=== PATIENT | male | born 1980 | race Caucasian/White ===

== ENCOUNTER 2018-12-31 20:31 | Emergency (ER) | payer OTHER ==
[2018-12-31] MEDS ORDERED: Rocephin 1000 MG INJ IM ONE (21:38)
--- NOTE | 2018-12-31 21:44 | ERPHSYRPT ---
- History of Present Illness Time Seen by Provider: 12/31/18 21:32 Source: patient Exam Limitations: no limitations Patient Subjective Stated Complaint: pt states, "I've had this rash since Jun at my beltline and went to the Dr. It got better with steroids and cream. They areas subsided and went away. They are now back and everywhere. Pt states , "[place]". Triage Nursing Assessment: pt has scabs to lt foot, lt lower ext, rt lower ext, back and redness to all these areas including bilat arms, with swelling noted to lt foot and neck area. Pt states, "They itch terribly". Lungs clear, heart tones reg. Physician History: 38-year-old white male arrives with complaint of a rash occurring on his right neck his left groin bilateral lower legs symptoms off and on since June. He states that this itches. He states that he has been seen by his family doctor placed on steroids and permethrin cream he states that this continues to come back. Past medical history is negative past surgical history is negative. . Timing/Duration: other (symptoms since June) Severity: moderate Modifying Factors: Improves With: other (has been on permethrin and steroids in the past) Associated Symptoms: rash, No nausea, No vomiting, No abdominal pain, No shortness of breath, No heartburn, No diaphoresis, No cough, No chills, No chest pain, No fever, No headaches, No loss of appetite, No malaise, No syncope , No seizure, No weakness Allergies/Adverse Reactions: No Known Drug Allergies Allergy (Unverified 12/31/18 20:47) Home Medications: Escitalopram Oxalate 10 mg [Lexapro 10 MG] 10 mg PO DAILY 12/31/18 [History] Hx Tetanus, Diphtheria Vaccination/Date Given: Yes Hx Influenza Vaccination/Date Given: Yes Hx Pneumococcal Vaccination/Date Given: No Immunizations Up to Date: Yes - Review of Systems Constitutional: No Fever, No Chills Eyes: No Symptoms Ears, Nose, & Throat: No Symptoms Respiratory: No Cough, No Dyspnea Cardiac: No Chest Pain, No Edema, No Syncope Abdominal/Gastrointestinal: No Abdominal Pain, No Nausea, No Vomiting, No Diarrhea Genitourinary Symptoms: No Dysuria Musculoskeletal: Other (eschar dorsal left foot approximately 1 cm x 4 erythema dorsal left fot) Skin: Rash (excoriated rash on right side of neck, bilateral feet, bilateral lower legs, left groin), Other (eschar 1 x 4 cm left dorsal foot with surrounding erythema) Neurological: No Dizziness, No Focal Weakness, No Sensory Changes Psychological: No Symptoms Endocrine: No Symptoms All Other Systems: Reviewed and Negative - Past Medical History Pertinent Past Medical History: No Neurological History: No Pertinent History ENT History: No Pertinent History Cardiac History: No Pertinent History Respiratory History: No Pertinent History Endocrine Medical History: No Pertinent History Musculoskeletal History: Fractures GI Medical History: No Pertinent History History: No Pertinent History Psycho-Social History: Depression Male Reproductive Disorders: No Pertinent History Other Medical History: HAND SURGERY D/T FX - Past Surgical History Past Surgical History: Yes Neuro Surgical History: No Pertinent History Cardiac: No Pertinent History Respiratory: No Pertinent History Gastrointestinal: No Pertinent History Genitourinary: No Pertinent History Musculoskeletal: Orthopedic Surgery Male Surgical History: No Pertinent History - Social History Smoking Status: Current every day smoker How long have you smoked: 16 yrs Exposure to second hand smoke: No Drug Use: none Patient Lives Alone: No - Nursing Vital Signs Nursing Vital Signs: Initial Vital Signs Temperature 99.0 F 12/31/18 20:31 Pulse Rate 85 12/31/18 20:31 Respiratory Rate 17 12/31/18 20:31 Blood Pressure 142/77 12/31/18 20:31 O2 Sat by Pulse Oximetry 97 12/31/18 20:31 Pain Scale Pain Intensity 2 - Physical Exam General Appearance: no apparent distress, alert Eye Exam: PERRL/EOMI, eyes nml inspection Ears, Nose, Throat Exam: normal ENT inspection, TMs normal, pharynx normal, moist mucous membranes Neck Exam: normal inspection, non-tender, supple, full range of motion Respiratory Exam: normal breath sounds, lungs clear, No respiratory distress Cardiovascular Exam: regular rate/rhythm, normal heart sounds, normal peripheral pulses, capillary refill <2 sec (Q.) Gastrointestinal/Abdomen Exam: soft, normal bowel sounds, No tenderness, No mass Back Exam: normal inspection, normal range of motion, No CVA tenderness, No vertebral tenderness Extremity Exam: other (1 x 4 cm eschar left dorsal foot erythema distal dorsal foot on the left) Neurologic Exam: alert, oriented x 3, cooperative, plane tender II-XII nml as tested, normal mood/affect, nml cerebellar function, nml station & gait, sensation nml, No motor deficits Skin Exam: other (diffuse but sparse erythematous rash bilateral lower legs right side of neck left groin resembles scabies) Lymphatic Exam: No adenopathy SpO2 Interpretation: normal (97%) SpO2: 97 - Course Nursing assessment & vital signs reviewed: Yes Ordered Tests: Medication Summary Discontinued Medications Generic Name Dose Route Start Last Admin Trade Name Vinnie PRN Reason Stop Dose Admin Ceftriaxone Sodium 1,000 mg 12/31/18 21:38 Rocephin 1000 Mg Inj IM 12/31/18 21:39 STAT ONE Permethrin 60 gm 12/31/18 21:45 Elimite Cream TP 12/31/18 21:46 STAT ONE Permethrin 60 gm 12/31/18 21:45 Elimite Cream TP 12/31/18 21:46 STAT ONE Trimethoprim/Sulfamethoxazole 1 tab 12/31/18 21:46 Bactrim Ds Tablet PO 12/31/18 21:47 STAT STA - Progress Progress: improved Progress Note: 12/31/18 21:43 38-year-old white male arrives with recurrent rash since June. He has a diffuse excoriated rash on the right side of his neck his left groin also bilateral lower legs appears to be scabies. He also has an excoriated area which is now covered with eschar on his left dorsal foot 1 x 4 cm with surrounding erythema. Will go ahead and give patient Rocephin 1 g IM placed on Bactrim DS one orally twice a day for 10 days, place patient on permethrin cream. Patient will need to follow back up with his family - Departure Departure Disposition: Home Clinical Impression: Scabies, Cellulitis of left foot Condition: Fair Critical Care Time: No Referrals: KRISTIN RODRIGUEZ II [Primary Care Provider] - Additional Instructions: Permethrin cream, apply from neck down wash off after 8 hours. Bactrim DS one orally twice a day for 10 days. Followup with your family . Return for acute distress or for severe symptoms. Prescriptions: Smz/Tmp Ds Tablet [Bactrim Ds Tablet] 1 tab PO BID #20 tablet
[2018-12-31] MEDS ORDERED: Elimite CREAM TP ONE ×2 (21:45)
[2018-12-31] MEDS ORDERED: BACTRIM DS TABLET PO STA (21:46)
[2018-12-31] MEDS ORDERED: Rocephin 1000 MG INJ ONE (21:47)
[2018-12-31] MEDS ORDERED: XYLOCAINE 1% HCL 20 ML MDV ONE (21:47)
[2018-12-31] MEDS ORDERED: BACTRIM DS TABLET PO ONE (21:52)
[2018-12-31 22:15] VITALS: BP 126/66; PULSE 88; O2SAT 98
== END 2018-12-31 22:16 | disposition home or self-care (01) ==
LOC: ED 20:31
DX: B86 Scabies (principal); L03.116 Cellulitis of left lower limb
CPT/HCPCS: 96372; 99283; J0696; A9270-GY

== ENCOUNTER 2019-02-10 19:36 | Emergency (ER) | payer OTHER ==
[2019-02-10 20:27] VITALS: O2SAT 97
[2019-02-10] MEDS ORDERED: BACIGUENT PACKET TP ONE (20:59)
--- NOTE | 2019-02-10 21:00 | ERPHSYRPT ---
- History of Present Illness Time Seen by Provider: 02/10/19 20:45 Source: patient Exam Limitations: no limitations Patient Subjective Stated Complaint: pt playing baseball when slid in to second , cleat caught on ground and body continued forward. pt states he had immediate swelling in outter aspect of rt ankle Triage Nursing Assessment: swelling in rt ankle. limeted rom rt ankle, and pt non weight bearing. no other sx noted or reported Physician History: Right ankle pain and swelling after sliding into a base at 17:00 on 02/10/2019. Patient also has left knee pain after sliding into a base with a large abrasion to the left knee. Method of Injury: sports injury Occurred: hours ago (3) Quality: constant Severity of Pain-Max: moderate Severity of Pain-Current: moderate Lower Extremities Pain: knee: left, ankle: right (lateral) Modifying Factors: Improves With: cold therapy (helps), immobilization (helps). Worsens With: movement Associated Symptoms: unable to bear weight, popping sensation, No dizzy, No fainted, No snapping sensation Allergies/Adverse Reactions: No Known Drug Allergies Allergy (Unverified 12/31/18 20:47) Home Medications: Escitalopram Oxalate 10 mg [Lexapro 10 MG] 10 mg PO DAILY 12/31/18 [History] Hx Tetanus, Diphtheria Vaccination/Date Given: Yes Hx Influenza Vaccination/Date Given: Yes Hx Pneumococcal Vaccination/Date Given: No - Review of Systems Constitutional: No Fever, No Chills Eyes: No Eye Pain, No Photophobia Ears, Nose, & Throat: No Nose Discharge, No Epistaxis Respiratory: No Cough, No Dyspnea Cardiac: No Chest Pain, No Edema, No Syncope Abdominal/Gastrointestinal: No Abdominal Pain, No Nausea, No Vomiting, No Diarrhea Genitourinary Symptoms: No Dysuria, No Hematuria, No Flank Pain Musculoskeletal: Joint Pain (right ankle), No Back Pain, No Neck Pain Skin: No Rash Neurological: No Dizziness, No Focal Weakness, No Parasthesia, No Sensory Changes Psychological: No Symptoms Endocrine: No Symptoms Hematologic/Lymphatic: No Easy Bleeding, No Easy Bruising All Other Systems: Reviewed and Negative - Past Medical History Pertinent Past Medical History: No Neurological History: No Pertinent History ENT History: No Pertinent History Cardiac History: No Pertinent History Respiratory History: No Pertinent History Endocrine Medical History: No Pertinent History Musculoskeletal History: Fractures GI Medical History: No Pertinent History History: No Pertinent History Psycho-Social History: Depression Male Reproductive Disorders: No Pertinent History Other Medical History: HAND SURGERY D/T FX - Past Surgical History Past Surgical History: Yes Neuro Surgical History: No Pertinent History Cardiac: No Pertinent History Respiratory: No Pertinent History Gastrointestinal: No Pertinent History Genitourinary: No Pertinent History Musculoskeletal: Orthopedic Surgery Male Surgical History: No Pertinent History - Social History Smoking Status: Current every day smoker How long have you smoked: 16 yrs Exposure to second hand smoke: No Drug Use: none Patient Lives Alone: No - Nursing Vital Signs Nursing Vital Signs: Initial Vital Signs Temperature 99.7 F 02/10/19 20:13 Pulse Rate 93 H 02/10/19 20:13 Respiratory Rate 16 02/10/19 20:13 Blood Pressure 124/86 02/10/19 20:13 O2 Sat by Pulse Oximetry 97 02/10/19 20:13 Pain Scale Pain Intensity 4 - Physical Exam General Appearance: alert Eyes, Ears, Nose, Throat Exam: moist mucous membranes Neck Exam: non-tender, supple Cardiovascular/Respiratory Exam: normal breath sounds, regular rate/rhythm, no respiratory distress Gastrointestinal/Abdominal Exam: non-tender, guarding Back Exam: normal inspection, No CVA tenderness, No vertebral tenderness Hips Exam: bilateral: non-tender, normal inspection, normal range of motion, no evidence of injury Legs Exam: bilateral leg: non-tender, normal inspection, normal range of motion , no evidence of injury Knees Exam: left knee: bone tenderness (lateral proximal head of the knee), pain , other (superficial avulsion of the skin to anterior lateral knee) Ankle Exam: right ankle: bone tenderness (right lateral malleolus), limited range of motion, pain, soft tissue tenderness, swelling (right lateral ankle), left ankle: non-tender, normal inspection, normal range of motion, no evidence of injury Foot Exam: bilateral foot: non-tender, normal inspection, normal range of motion , no evidence of injury DTR - Lower Extremities Exam: ankle (R): 2+, ankle (L): 2+ Neuro/Tendon Exam: normal sensation, normal motor functions, normal tendon functions Mental Status Exam: alert, oriented x 3, cooperative Skin Exam: normal color, warm, dry SpO2 Interpretation: normal SpO2: 97 O2 Delivery: Room Air - Course Nursing assessment & vital signs reviewed: Yes - Radiology Exams Right Ankle X-ray Interpretation: Interpreted by me, Reviewed by me, No Fracture, Nml Alignment, Other (positive lateral ankle swelling) Left Knee X-ray Interpretation: Interpreted by me, Reviewed by me, Negative, No Fracture, Nml Alignment, Nml Soft Tissues Ordered Tests: Active Orders 24 hr Category Date Time Status Pk Bandage Application -[facility] STAT Care 02/10/19 22:43 Ordered Crutches STAT Care 02/10/19 22:44 Ordered Dressing Care DAILY Care 02/10/19 22:44 Ordered Dressing Care ROUTINE Care 02/10/19 20:59 Active Splint STAT Care 02/10/19 22:43 Ordered ANKLE (3 VIEWS) Stat Exams 02/10/19 20:56 Taken KNEE (3 VIEWS) Stat Exams 02/10/19 20:58 Taken Medication Summary Discontinued Medications Generic Name Dose Route Start Last Admin Trade Name Freq PRN Reason Stop Dose Admin Bacitracin Zinc 0.9 gm 02/10/19 20:59 02/10/19 21:36 Baciguent Packet TP 02/10/19 21:00 0.9 gm STAT ONE Administration Bacitracin Zinc Confirm 02/10/19 21:34 Baciguent Packet Administered 02/10/19 21:35 Dose 1 gm .ROUTE .STK-MED ONE - Progress Progress: improved Counseled pt/family regarding: diagnosis, need for follow-up, rad results - Departure Departure Disposition: Home Clinical Impression: Avulsion of skin, Elevated blood pressure reading without diagnosis of hypertension Moderate right ankle sprain Qualifiers: Encounter type: initial encounter Qualified Code(s): S93.401A - Sprain of unspecified ligament of right ankle, initial encounter Contusion of left knee and lower leg Qualifiers: Encounter type: initial encounter Qualified Code(s): S80.02XA - Contusion of left knee, initial encounter Condition: Good Critical Care Time: No Referrals: KRISTIN RODRIGUEZ II [Primary Care Provider] - 02/11/19 Instructions: DASH Diet, Ankle Sprain (DC), Contusion (DC) Additional Instructions: Continue to do Rest, Ice, Compression and Elevation over the next three days. Follow-up with your doctor in the next two days. Use Crutches as needed. We will call you if the Radiologist interprets anything different from the ED physician's interpretation that changes your clinical management. Return if any worse pain, discoloration, loss of function or loss of sensation. Prescriptions: Etodolac 400 mg [Lodine 400 mg] 400 mg PO BID PRN PRN #20 tablet PRN Reason: Pain
[2019-02-10] MEDS ORDERED: BACIGUENT PACKET ONE (21:34)
[2019-02-10 23:15] VITALS: BP 126/92; PULSE 72
--- NOTE | 2019-02-11 11:33 | XRAY ---
Exam: 3 views of the right ankle from 02/10/2019. Comparison: None. Indication: Lateral right ankle swelling/pain. Findings: AP, oblique, and lateral radiographs of the right ankle were obtained. I see no acute fracture or dislocation. An accessory ossicle/ossification center is seen adjacent inferior tip of the medial malleolus as an incidental note. There is at least moderate soft tissue swelling overlying the lateral malleolus. The right ankle mortise appears unremarkable on the AP image and is well-preserved. No other unusual soft tissue calcifications are seen. No anterior right ankle joint effusion is seen. There is a tiny plantar right calcaneal spur. The base of the right fifth metatarsal appears intact. Impression: 1. There is moderate soft tissue swelling overlying the lateral malleolus of the right ankle. No radiopaque soft tissue foreign body is seen. 2. I see no acute fracture or dislocation of the right ankle. 3. Tiny plantar right calcaneal spur.
--- NOTE | 2019-02-11 13:03 | XRAY ---
Exam: 3 view left knee series from 02/10/2019. Comparison: None. Indication: Injured playing baseball, complains of lateral mid knee pain, abrasion along the lateral side of distal portion of left knee. Findings: AP, oblique, and crosstable lateral views of the left knee were obtained. I see no acute fracture or dislocation. The joint spaces appear unremarkable. No suprapatellar soft tissue swelling is seen. No other focal bone or joint abnormality is seen. A small calcified fabella is seen posterior to the left knee. Impression: 1. No acute left knee fracture, dislocation, or joint effusion is seen.
== END 2019-02-10 23:17 | disposition home or self-care (01) ==
LOC: ED 19:36
DX: S93.401A Sprain of unspecified ligament of right ankle, initial encounter (principal); S80.02XA Contusion of left knee, initial encounter; R03.0 Elevated blood-pressure reading, without diagnosis of hypertension; S81.002A Unspecified open wound, left knee, initial encounter; W22.8XXA Striking against or struck by other objects, initial encounter; Y93.64 Activity, baseball
CPT/HCPCS: 73562; 73610; 99284; A9270-GY

== ENCOUNTER 2022-11-11 09:52 | Emergency (ER) | payer OTHER ==
[2022-11-11 10:11] VITALS: BP 144/87; PULSE 74; O2SAT 99
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
[2022-11-11] MEDS ORDERED: MINERAL OIL LIGHT 10 ML FOR SURGERY TOP PRN (10:20)
== END 2022-11-11 10:33 | disposition home or self-care (01) ==
LOC: ED 09:52
DX: T65.891A Toxic effect of other specified substances, accidental (unintentional), initial encounter (principal); T23.5 Corrosion of first degree of wrist and hand; Z79.52 Long term (current) use of systemic steroids; Z72.0 Tobacco use
CPT/HCPCS: 99281; A9270-GY